=== PATIENT | female | born 1955 | race Caucasian/White ===

== ENCOUNTER 2020-10-06 17:21 | Emergency (ER) | payer OTHER ==
[~2020-10-06] VITALS: Ht 162.6 cm; Wt 59.0 kg
[2020-10-06 17:48] VITALS: Ht 162.6 cm; Wt 59.0 kg
[2020-10-06 19:49] VITALS: BP 134/83
== END 2020-10-06 19:49 | disposition home or self-care (01) ==
LOC: ED 17:21
DX: R09.89 Other specified symptoms and signs involving the circulatory and respiratory systems (principal); R05 Cough; R11.10 Vomiting, unspecified; E03.9 Hypothyroidism, unspecified; G89.29 Other chronic pain; M54.9 Dorsalgia, unspecified; Z20.828 Contact with and (suspected) exposure to other viral communicable diseases; Z98.890 Other specified postprocedural states; Z91.041 Radiographic dye allergy status
CPT/HCPCS: U0003